=== PATIENT | male | born 2000 | race Caucasian/White ===

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

== ENCOUNTER 2018-02-18 05:23 | Emergency (ER) | payer OTHER ==
[~2018-02-18] VITALS: Ht 175.3 cm; Wt 83.9 kg
[~2018-02-18 05:23] MED LIST changes: +Amoxicillin875 MG PO
[2018-02-18] MEDS ORDERED: Ultram50 MG PO (06:44)
[2018-02-18] MEDS ORDERED: Doxycycline Hy100 MG PO (06:44)
== END 2018-02-18 06:54 | disposition home or self-care (01) ==
LOC: ER 05:23
DX: J01.00 Acute maxillary sinusitis, unspecified (principal); Z87.891 Personal history of nicotine dependence; Z79.899 Other long term (current) drug therapy
CPT/HCPCS: 99283; J1100

== ENCOUNTER 2021-04-03 06:14 | Day surgery (SDC) | payer BC, OTHER ==
[~2021-04-03] VITALS: Ht 177.8 cm; Wt 110.0 kg
[~2021-04-03 06:14] MED LIST changes: +Doxycycline Hy100 MG PO; +OMEP20ER PO; +PROMETHAZINE-C473 ML PO; +Ultram50 MG PO
--- NOTE | 2021-04-03 06:43 | NUR ---
History, Chart, Medications and Allergies reviewed before start of procedure. Patient confirms NPO status and agrees with scheduled surgery. Lungs clear T/O to Auscultation. Patient States Post-Procedure ride home has been arranged with his mom.
--- NOTE | 2021-04-03 11:06 | NUR ---
Patient up to Ambulate independently. Gait steady. Discharge instructions reviewed with patient. Patient verbalizes understanding. Copy given to patient to take home. Patient States Post-Procedure ride home has been arranged. Discharged via wheelchair to private car for ride home. PT RECEIVED A TOTAL OF TWO PAIN PILLS. ALL BELONINGS RETURNED TO PATIENT. SPOKE TO MOM TO PROVIDED TRANSPORTAION HOME.
== END 2021-04-03 11:12 | disposition home or self-care (01) ==
LOC: ORSCMMR 06:14 → ORD 07:30 → ORSCMMR 11:12
PROVIDERS: Surgery
PROC: 0FT44ZZ Resection of Gallbladder, Percutaneous Endoscopic Approach (ICD-10-PCS; principal; 2021-04-03 07:30)
DX: K80.10 Calculus of gallbladder with chronic cholecystitis without obstruction (principal); K21.9 Gastro-esophageal reflux disease without esophagitis; Z87.891 Personal history of nicotine dependence; Z79.899 Other long term (current) drug therapy; E66.9 Obesity, unspecified; Z68.34 Body mass index [BMI] 34.0-34.9, adult
CPT/HCPCS: 88304; A9270; J0694; J1100; J1885; J2250; J2405; J2704; J3010; J7120

== ENCOUNTER 2021-04-11 20:31 | Observation (INO) | payer BC, OTHER ==
[~2021-04-11] VITALS: Ht 177.8 cm; Wt 106.5 kg
[2021-04-11 21:40] LABS: BASOPHILS PERCENT AUTO 1 % (0-2); EOSINOPHILS ABSOLUTE AUTO 0.41 K/mm3 (0.00-0.68); EOSINOPHILS PERCENT AUTO 4 % (0-6); Hematocrit 46.9 % (37.0-53.0); Hemoglobin 15.9 g/dL (13.5-17.5); IMMATURE GRAN ABSOLUTE AUTO 0.18 K/mm3 (0.00-0.10); IMMATURE GRAN PERCENT AUTO 2 % (0-1); LYMPHOCYTES ABSOLUTE AUTO 1.21 K/mm3 (0.84-5.20); LYMPHOCYTES PERCENT AUTO 10 % (21-46); MONOCYTES ABSOLUTE AUTO 0.87 K/mm3 (0.16-1.47); MONOCYTES PERCENT AUTO 7 % (4-13); Mean Corpuscular HGB 29.4 pg (26.0-34.0); Mean Corpuscular HGB Conc 33.9 g/dL (31.5-36.5); Mean Corpuscular Volume 87 fL (80-100); Mean Platelet Volume 9.4 fL (9.1-12.4); NEUTROPHILS ABSOLUTE AUTO 9.08 K/mm3 (1.96-9.15); NEUTROPHILS PERCENT AUTO 77 % (41-73); Platelet Count 324 K/mm3 (150-400); RDW Coefficient Variation 14.8 % (11.7-14.2); RDW Standard Deviation 45.5 fL (35.1-46.3); Red Blood Cell Count 5.41 M/mm3 (4.30-5.90); White Blood Cell Count 11.85 K/mm3 (4.00-11.30)
[2021-04-11 21:58] LABS: Alanine Aminotransfer (ALT/SGP 559 U/L (12-78); Albumin, Blood 4.2 g/dL (3.4-5.0); Alk Phos 209 U/L (50-136); Anion Gap 7 mmol/L (6-16); Aspartate Aminotrans (AST/SGOT 305 U/L (12-37); Bilirubin, Total 13.8 mg/dL (0.1-1.0); Blood Urea Nitrogen 12 mg/dL (8-24); Bun/Creatinine Ratio 15.5 (12.0-20.0); CO2, Blood 26 mmol/L (21-32); Calcium, Blood 9.4 mg/dL (8.5-10.1); Chloride, Blood 101 mmol/L (98-108); Creatinine, Blood 0.78 mg/dL (0.60-1.20); Globulin, Blood 4.2 g/dL (2.2-4.0); Glomerular Filtration Rate >60 (60-); Glucose, Blood 95 mg/dL (70-99); Potassium, Blood 3.7 mmol/L (3.5-5.5); Sodium, Blood 134 mmol/L (136-145); Total Protein, Blood 8.4 g/dL (6.4-8.2)
[2021-04-12 03:10] LABS: BASOPHILS ABSOLUTE AUTO 0.06 K/mm3 (0.00-0.23); BASOPHILS PERCENT AUTO 1 % (0-2); EOSINOPHILS ABSOLUTE AUTO 0.13 K/mm3 (0.00-0.68); EOSINOPHILS PERCENT AUTO 1 % (0-6); Hemoglobin 13.3 g/dL (13.5-17.5); IMMATURE GRAN ABSOLUTE AUTO 0.14 K/mm3 (0.00-0.10); IMMATURE GRAN PERCENT AUTO 1 % (0-1); LYMPHOCYTES ABSOLUTE AUTO 0.76 K/mm3 (0.84-5.20); LYMPHOCYTES PERCENT AUTO 6 % (21-46); MONOCYTES ABSOLUTE AUTO 0.92 K/mm3 (0.16-1.47); MONOCYTES PERCENT AUTO 8 % (4-13); Mean Corpuscular HGB 29.3 pg (26.0-34.0); Mean Corpuscular HGB Conc 34.1 g/dL (31.5-36.5); Mean Corpuscular Volume 86 fL (80-100); Mean Platelet Volume 9.5 fL (9.1-12.4); NEUTROPHILS ABSOLUTE AUTO 10.17 K/mm3 (1.96-9.15); NEUTROPHILS PERCENT AUTO 84 % (41-73); Platelet Count 270 K/mm3 (150-400); RDW Coefficient Variation 14.7 % (11.7-14.2); RDW Standard Deviation 44.6 fL (35.1-46.3); Red Blood Cell Count 4.54 M/mm3 (4.30-5.90); White Blood Cell Count 12.18 K/mm3 (4.00-11.30)
[2021-04-12 03:29] LABS: Alanine Aminotransfer (ALT/SGP 492 U/L (12-78); Albumin, Blood 3.4 g/dL (3.4-5.0); Alk Phos 176 U/L (50-136); Anion Gap 8 mmol/L (6-16); Aspartate Aminotrans (AST/SGOT 268 U/L (12-37); Bilirubin, Total 12.1 mg/dL (0.1-1.0); Blood Urea Nitrogen 10 mg/dL (8-24); Bun/Creatinine Ratio 14.3 (12.0-20.0); CO2, Blood 25 mmol/L (21-32); Calcium, Blood 8.3 mg/dL (8.5-10.1); Chloride, Blood 104 mmol/L (98-108); Globulin, Blood 3.4 g/dL (2.2-4.0); Glomerular Filtration Rate >60 (60-); Glucose, Blood 100 mg/dL (70-99); Potassium, Blood 3.5 mmol/L (3.5-5.5); Sodium, Blood 137 mmol/L (136-145); Total Protein, Blood 6.8 g/dL (6.4-8.2)
--- NOTE | 2021-04-12 03:57 | NUR ---
SHIFT SUMMARY A/OX4, SKIN AND SCELERA APPEAR SLIGHTLY JAUNDICED. PT REPORTS 10/10 PAIN, MEDICATED PRN WITH A DECREASED TO 6/10. ABD TENDER AND MILDLY DISTENDED WITH REPORTS OF N/V. PLAN IS TO TRANSFER TO [facility] FOR ERCP ONCE BED IS AVAILABLE. VSS, NO ACUTE CHANGES AT THIS TIME. BED IN LOWEST POSITION WITH CALL LIGHT IN REACH. WILL CONTINUE TO MONITOR AND REPORT TO ONCOMING RN.
--- NOTE | 2021-04-12 14:19 | NUR ---
NO BEDS AVAILABLE AT [facility] TODAY PER SURGERY CENTER ADMINISTRATOR
--- NOTE | 2021-04-12 17:56 | NUR ---
SHIFT SUMMARY NO ACUTE CHANGES T/O SHIFT, VS STABLE. STILL REPORTING PAIN AT TIMES, TREATED PER EMAR. REMAINS ON TELE, RUNNING SR IN 70'S THIS SHIFT. LR OKAYED OCCASIONAL ICE CHIPS AT THIS TIME, NPO ORDERS CONTINUE. CURRENTLY WAITING ON A BED FOR PT TRANSFER TO [facility] OR [facility] FOR ERCP. SKIN REMAINS JAUNDICED. NS RUNNING @ 125. PT IS RESTING IN BED, CALL LIGHT WITHIN REACH. PT CALLS APPROPRIATELY FOR ANY NEEDS AND SBA TO BATHROOM.
--- NOTE | 2021-04-13 04:06 | NUR ---
SHIFT SUMMARY NO ACUTE CHANGES THIS SHIFT, NO C/O ANY KIND, STATES PAIN IS "TOLERABLE" DECLINED PAIN MEDS T/O SHIFT, SLEPT T/O THE NIGHT & SLEEPING AT THIS TIME, CALL LIGHT IN REACH, WILL CONT TO MONITOR UNTIL REPORT GIVEN TO DAY RN.
[2021-04-13 08:29] LABS: Hematocrit 38.8 % (37.0-53.0); Hemoglobin 13.2 g/dL (13.5-17.5); Mean Corpuscular HGB 29.3 pg (26.0-34.0); Mean Corpuscular Volume 86 fL (80-100); Platelet Count 252 K/mm3 (150-400); RDW Coefficient Variation 14.6 % (11.7-14.2); RDW Standard Deviation 45.8 fL (35.1-46.3); White Blood Cell Count 6.92 K/mm3 (4.00-11.30)
[2021-04-13 08:51] LABS: Alanine Aminotransfer (ALT/SGP 516 U/L (12-78); Albumin, Blood 2.9 g/dL (3.4-5.0); Albumin/Globulin Ratio 0.8 (0.8-1.8); Alk Phos 217 U/L (50-136); Anion Gap 7 mmol/L (6-16); Aspartate Aminotrans (AST/SGOT 238 U/L (12-37); Bilirubin, Total 9.4 mg/dL (0.1-1.0); Blood Urea Nitrogen 13 mg/dL (8-24); Bun/Creatinine Ratio 15.3 (12.0-20.0); CO2, Blood 24 mmol/L (21-32); Calcium, Blood 8.4 mg/dL (8.5-10.1); Chloride, Blood 107 mmol/L (98-108); Creatinine, Blood 0.85 mg/dL (0.60-1.20); Globulin, Blood 3.5 g/dL (2.2-4.0); Glomerular Filtration Rate >60 (60-); Glucose, Blood 71 mg/dL (70-99); Potassium, Blood 3.7 mmol/L (3.5-5.5); Sodium, Blood 138 mmol/L (136-145); Total Protein, Blood 6.4 g/dL (6.4-8.2)
--- NOTE | 2021-04-13 19:28 | NUR ---
END OF SHIFT SUMMARY: PATIENT REPORTED ABDOMINAL PAIN THROUGHOUT THE SHIFT. PATIENT REPORTED THAT THE PAIN WAS CONTROLLED WITH REST AND WITH THE HEAT PAD PROVIDED. PATIENT ABLE TO AMBULATE INDEPENDENTLY IN THE ROOM WITHOUT DIFFICULTY. PATIENT DENIED NAUSEA. PATIENT REPORTED FEELING HUNGER. PATIENT CONTINUES TO APPEAR SLIGHTLY JUANDICED. PATIENT TOLERATED ICE CHIPS WITHOUT INCREASE IN ABDOMINAL PAIN OR NAUSEA.
--- NOTE | 2021-04-14 04:33 | NUR ---
SHIFT SUMMARY NO ACUTE CHANGES THIS SHIFT, DR BAKER SAW PT AT START OF SHIFT & OK'D FOR CLEAR LIQ DIET (STILL WAITING COBRA XFER), PT TOLERATED WELL, NO C/O PAIN/NAUSEA, SLEPT T/O THE NIGHT & SLEEPING AT THIS TIME, CALL LIGHT IN REACH, WILL CONT TO MONITOR UNTIL REPORT GIVEN TO DAY RN.
[2021-04-14 04:53] LABS: BASOPHILS ABSOLUTE AUTO 0.05 K/mm3 (0.00-0.23); BASOPHILS PERCENT AUTO 1 % (0-2); EOSINOPHILS ABSOLUTE AUTO 0.24 K/mm3 (0.00-0.68); EOSINOPHILS PERCENT AUTO 4 % (0-6); Hemoglobin 13.5 g/dL (13.5-17.5); IMMATURE GRAN ABSOLUTE AUTO 0.12 K/mm3 (0.00-0.10); IMMATURE GRAN PERCENT AUTO 2 % (0-1); LYMPHOCYTES ABSOLUTE AUTO 1.46 K/mm3 (0.84-5.20); LYMPHOCYTES PERCENT AUTO 25 % (21-46); MONOCYTES ABSOLUTE AUTO 0.49 K/mm3 (0.16-1.47); MONOCYTES PERCENT AUTO 8 % (4-13); Mean Corpuscular HGB 29.2 pg (26.0-34.0); Mean Corpuscular HGB Conc 33.8 g/dL (31.5-36.5); Mean Corpuscular Volume 86 fL (80-100); Mean Platelet Volume 9.8 fL (9.1-12.4); NEUTROPHILS ABSOLUTE AUTO 3.56 K/mm3 (1.96-9.15); NEUTROPHILS PERCENT AUTO 60 % (41-73); Platelet Count 244 K/mm3 (150-400); RDW Coefficient Variation 14.8 % (11.7-14.2); Red Blood Cell Count 4.63 M/mm3 (4.30-5.90); White Blood Cell Count 5.92 K/mm3 (4.00-11.30)
[2021-04-14 05:17] LABS: Alanine Aminotransfer (ALT/SGP 721 U/L (12-78); Albumin/Globulin Ratio 0.9 (0.8-1.8); Alk Phos 243 U/L (50-136); Anion Gap 7 mmol/L (6-16); Aspartate Aminotrans (AST/SGOT 387 U/L (12-37); Bilirubin, Total 8.6 mg/dL (0.1-1.0); Blood Urea Nitrogen 9 mg/dL (8-24); Bun/Creatinine Ratio 12.3 (12.0-20.0); CO2, Blood 27 mmol/L (21-32); Calcium, Blood 8.3 mg/dL (8.5-10.1); Chloride, Blood 106 mmol/L (98-108); Creatinine, Blood 0.73 mg/dL (0.60-1.20); Globulin, Blood 3.5 g/dL (2.2-4.0); Glomerular Filtration Rate >60 (60-); Glucose, Blood 87 mg/dL (70-99); Potassium, Blood 3.5 mmol/L (3.5-5.5); Sodium, Blood 140 mmol/L (136-145); Total Protein, Blood 6.5 g/dL (6.4-8.2)
--- NOTE | 2021-04-14 09:35 | NUR ---
NPO PATIENT TO BE NPO PER DR. LR AND IS PENDING COBRA TRANSFER. VO TO HOLD ALL AM PO MEDS INCLUDING SC HEPARIN. DIET ORDER CHANGED TO NPO. PATIENT HAS BEEN INFORMED.
--- NOTE | 2021-04-14 09:37 | NUR ---
[facility] ORDERED TO PREP FOR COBRA TRANSFER
[2021-04-14 12:25] LABS: SARS-Cov-2 (COVID-19) PCR, MMC NEGATIVE (NEGATIVE)
--- NOTE | 2021-04-14 12:48 | NUR ---
Discharge Summary A/Ox4, pleasant and cooperative. Discharging to [facility] for planned ERCP. Report called and given to receiving nurse Heather @ [phone] @ [phone]. Receiving room # 31. Patient signed cobra transfer papers, they have been placed in chart. IV patent. Had shower prior to transfer. Minimal abdominal pain noted, declines the need for pharmacological intervention. Will be sending personal belongings with patient via ambulance transport to receiving acute care hospital.
== END 2021-04-14 13:34 | disposition short-term general hospital (02) ==
LOC: ER 20:31 → MEDS 20:33 → ER 04-12 00:55 → MEDS 04-12 00:55
PROVIDERS: Internal Medicine; Physician Assistant; ADMIT Internal Medicine
DX: K80.31 Calculus of bile duct with cholangitis, unspecified, with obstruction (principal); F32.9 Major depressive disorder, single episode, unspecified; F41.9 Anxiety disorder, unspecified; K21.9 Gastro-esophageal reflux disease without esophagitis; G89.29 Other chronic pain; Z87.891 Personal history of nicotine dependence; Z90.49 Acquired absence of other specified parts of digestive tract; Z79.899 Other long term (current) drug therapy; Z20.822 Contact with and (suspected) exposure to COVID-19
CPT/HCPCS: 36415; 74177; 74181; 76705; 80053; 82140; 83605; 83690; 85025; 85027; 87040; 94760; 96365; 96372; 96375; 96376; 99285-25; C9113; G0378; J1170; J1644; J2405; J2543; J7030; Q9967; U0004

== ENCOUNTER 2021-12-07 23:12 | Emergency (ER) | payer OTHER ==
[~2021-12-07] VITALS: Ht 177.8 cm; Wt 104.3 kg
[2021-12-08] LABS: Source, Urine Voided
[2021-12-08 00:03] LABS: Bilirubin, Urine Neg (Neg); Blood, Urine Neg (Neg); Glucose Qualitative, Urine Neg (Neg); Ketones, Urine Neg (Neg); Leukocyte Esterase, Urine Neg (Neg); Nitrite, Urine Neg (Neg); Protein, Urine Neg (Neg); Urobilinogen, Urine NORM (Normal); pH, Urine 6.5 (5.0-8.0)
[2021-12-08 00:22] LABS: Color, Urine Yellow (P-Yellow)
[2021-12-08 00:24] LABS: Amorphous Mod (0-Heavy); Appearance, Urine Hazy (Clear); Bacteria Rare /hpf; Red Blood Cells, Urine 0-2 /hpf (0-2); Squamous Epithelial Cells Rare /hpf (Few); White Blood Cells, Urine 0-2 /hpf (0-5)
[2021-12-08] MEDS ORDERED: Robaxin750 MG PO (01:40)
[2021-12-08] MEDS ORDERED: METSALMENC TOP (01:40)
[2021-12-08] MEDS ORDERED: NAPR500 PO (01:40)
== END 2021-12-08 01:55 | disposition home or self-care (01) ==
LOC: ER 23:12
PROVIDERS: Emergency Medicine
DX: R10.12 Left upper quadrant pain (principal); M54.50 Low back pain, unspecified; Z87.891 Personal history of nicotine dependence; Z79.1 Long term (current) use of non-steroidal anti-inflammatories (NSAID)
CPT/HCPCS: 81001; 99283; A9270